=== PATIENT | male | born 1995 | race Caucasian/White ===

== ENCOUNTER 2019-01-18 20:41 | Emergency (ER) | payer BC ==
[~2019-01-18] VITALS: Ht 172.7 cm; Wt 111.1 kg
[2019-01-18 20:44] VITALS: BP 140/89
--- NOTE | 2019-01-18 21:43 | NUR ---
PT REFUSED CRUTCHES.
== END 2019-01-18 21:45 | disposition home or self-care (01) ==
LOC: ED 21:39
DX: S93.401A Sprain of unspecified ligament of right ankle, initial encounter (principal); X50.1XXA Overexertion from prolonged static or awkward postures, initial encounter; Y93.01 Activity, walking, marching and hiking; Y92.89 Other specified places as the place of occurrence of the external cause; Y99.8 Other external cause status
CPT/HCPCS: 99282; 99283

== ENCOUNTER 2020-01-30 11:37 | Emergency (ER) | payer BC ==
[~2020-01-30] VITALS: Ht 172.7 cm; Wt 110.3 kg
[2020-01-30 11:49] VITALS: BP 152/90
--- NOTE | 2020-01-30 13:30 | NUR ---
Patient/Caregiver given discharge instructions and they have confirmed that they understand the instructions. Patient ambulatory with steady gait.
== END 2020-01-30 13:32 | disposition home or self-care (01) ==
LOC: ED 13:22
DX: S90.31XA Contusion of right foot, initial encounter (principal); G89.11 Acute pain due to trauma; W10.8XXA Fall (on) (from) other stairs and steps, initial encounter; Y93.89 Activity, other specified; Y92.89 Other specified places as the place of occurrence of the external cause; Y99.0 Civilian activity done for income or pay
CPT/HCPCS: 99283